=== PATIENT | male | born 1940 | race Caucasian/White ===

== ENCOUNTER → 2016-09-27 | Outpatient (CLI) | payer MEDICARE ==
[~2016-09-27] MED LIST: ASP81TEC PO; HYDR-3061 PO; LISI10TA PO; ROSU10TA12 PO; TADA2.5T PO; VARD20TA30 PO; VIT D
--- NOTE | 2016-09-29 12:50 | ECHOCARDIOGRAPHY REPORT ---
PROCEDURE PHYSICIAN: BECKY SAN DATE OF PROCEDURE: 09/27/2016 TWO DIMENSIONAL ECHOCARDIOGRAM REPORT PRIMARY PHYSICIAN: Dr. Grant OTHER PHYSICIAN: Dr. San REFERRING PHYSICIAN: ORDERING PHYSICIAN: Ora Alfonso APRN INDICATION FOR THE PROCEDURE: Cardiac murmur, aortic valve sclerosis, coronary artery disease. MEASUREMENTS DERIVED VALUES LV DIAMETER (LAX) NORMALS NORMALS Diastolic 4.7 (3.6-5.2) Eject. Fract. (60%+/-6%) Systolic (2.3-3.9) Diastolic Vol. % Shortening (0.22-0.42) Systolic Vol. Aortic Root 3.3 IVS THICKNESS Diastolic 0.8 (0.6-1.1) LVPW THICKNESS Diastolic 1.1 (0.6-1.1) LA DIAMETER Systolic 2.9 (2.1-3.7) DESCRIPTION: This is a technically difficult and not ideal for wall motion analysis. Global left ventricular systolic function appears fairly well preserved. The aortic, mitral and tricuspid valve leaflets show good leaflet excursion. There is mild mitral annular calcification, mild aortic valve sclerosis. There is no significant pericardial effusion. Doppler imaging shows trivial to mild mitral and tricuspid regurgitation. There is a suggestion of distal septal hypokinesis on some views. There is no evidence of any significant valvular stenosis. Pulmonary artery systolic pressure is estimated to be within normal limits. Mitral inflow is suggestive of mild diastolic dysfunction of the left ventricle. CONCLUSION: 1. Well preserved global left ventricular systolic function with an ejection fraction of 50 to 55%. 2. The study is technically difficult and not ideal for wall motion analysis. In some views, distal septal hypokinesis is suggested. 3. Mild aortic valve sclerosis and mild mitral annular calcification without evidence of significant valvular stenosis. 4. Mild diastolic dysfunction of the left ventricle. 5. Mild mitral and tricuspid regurgitation. Job ID: [id number] Dictated Date: 09/29/2016 09:35:49 Bank Analyst Date: 09/29/2016 12:39:40 / cassia
== END ==
LOC: CARD 07:33
PROVIDERS: ATTEND Nurse Practitioner Family
DX: I70.0 Atherosclerosis of aorta (principal); I25.10 Atherosclerotic heart disease of native coronary artery without angina pectoris; I65.23 Occlusion and stenosis of bilateral carotid arteries; E78.4 Other hyperlipidemia; Z72.0 Tobacco use
CPT/HCPCS: 93306

== ENCOUNTER → 2016-11-28 | Outpatient (CLI) | payer MEDICARE ==
--- NOTE | 2016-11-28 13:24 | Diagnostic Imaging Report ---
PROCEDURE: US Thyroid. TECHNIQUE: Multiple real-time grayscale images were obtained of the thyroid in various projections. INDICATION: Follow-up thyroid nodule. COMPARISON: 11/06/2014, 10/30/2012, and 10/20/2011. DISCUSSION: The thyroid gland remains mildly enlarged. The right thyroid measures 5.7 x 2.4 x 2.1 cm. The left thyroid measures 6.0 x 1.6 x 1.9 cm. A 5 mm hypoechoic nodule within the left thyroid gland is stable, likely benign. Solid dominant nodule within the right thyroid gland measures 2 x 2 x 3.2 cm, which measures slightly larger than previous exam. The overall appearance is very similar to the prior exam though centrally, there is a small cystic component which is slightly increased in size. Given the overall long-term stability, nodule is likely benign though recommend yearly sonographic follow-up to document further stability. No new nodule identified. No suspicious microcalcifications. IMPRESSION: Dominant right thyroid nodule is slightly increased in size from previous exam though the overall appearance remains benign. Recommend yearly sonographic follow-up. Dictated by: Dictated on workstation # [id number]
== END ==
LOC: RAD 10:59
PROVIDERS: ATTEND Internal Medicine
DX: E04.9 Nontoxic goiter, unspecified (principal)
CPT/HCPCS: 76536

== ENCOUNTER 2017-11-16 05:50 | Outpatient (CLI) | payer MEDICARE ==
[~2017-11-16] VITALS: Ht 170.2 cm; Wt 92.1 kg
[2017-11-16] MEDS ORDERED: LISI10TA2 PO (15:54)
[2017-11-16] MEDS ORDERED: ASPI-586 PO (15:54)
[2017-11-16] MEDS ORDERED: ATOR40TA70 PO (15:54)
[2017-11-16] MEDS ORDERED: CHOL40003 PO (15:54)
[2017-11-16] MEDS ORDERED: NF-SILD25T PO (15:54)
[2017-11-16] MEDS ORDERED: LISI-556 PO (15:54)
== END 2017-11-16 15:50 ==
LOC: PREOP 05:50
PROVIDERS: ATTEND Surgery
DX: Z01.818 Encounter for other preprocedural examination (principal); Z12.11 Encounter for screening for malignant neoplasm of colon; Z86.010 Personal history of colon polyps

== ENCOUNTER 2017-11-22 10:57 | Day surgery (SDC) | payer MEDICARE ==
[~2017-11-22] VITALS: Ht 170.2 cm; Wt 92.1 kg
[~2017-11-22 10:57] MED LIST changes: +ASPI-586 PO; +ATOR40TA70 PO; +CHOL40003 PO; +LISI-556 PO; +LISI10TA2 PO; +NF-SILD25T PO
[2017-11-22] MEDS ORDERED: NS IV 500 ML 500 ML IV PRN (11:10)
[2017-11-22] MEDS ORDERED: LIDOCAINE JELLY 2% (XYLOCAINE) 5 ML TUBE MM PRN (11:15)
[2017-11-22 11:25] VITALS: BP 117/64
--- NOTE | 2017-11-22 11:33 | Conscious Sedation/ASA ---
Conscious Sedation Pre-Proced Time Reviewed: 11:20 ASA Class: 2 Airway Mallampati Classification: ([facility] [facility] appropriate class) I. II. III, IV Lungs Heart ASA score ASA 1: a normal healthy patient ASA 2: a patient with a mild systemic disease (mid diabetes, controlled hypertension, obesity ASA 3: a patient with a severe systemic disease that limits activity (angina , COPD, prior Myocardial infarction) ASA 4: a patient with an incapacitating disease that is a constant threat to life (CHF, renal failure) ASA 5: a moribund patient not expected to survive 24 hrs. (ruptured aneurysm) ASA 6: a declared brain patient whose organs are being harvested. For emergent operations, add the letter E after the classification Grade 2 Sedation Plan: Analgesia, Amnesia, Plan communicated to team members, Discussed options with patient/fam, Discussed risks with patient/fam Note The patient is an appropriate candidate to undergo the planned procedure, sedation, and anesthesia. The patient immediately re-assessed prior to indication. ANGELIQUE GORDON MD Nov 22, 2017 11:33 am
--- NOTE | 2017-11-22 11:34 | Progress Note-Pre Operative ---
Pre-Operative Progress Note H&P Reviewed The H&P was reviewed, patient examined and no changes noted. Date Seen by Provider: Nov 22, 2017 Time Seen by Provider: 11:20 Date H&P Reviewed: Nov 22, 2017 Time H&P Reviewed: 11:20 Pre-Operative Diagnosis: hx of polyp ANGELIQUE GORDON MD Nov 22, 2017 11:33 am
[2017-11-22] MEDS ORDERED: morphine INJ 10 MG/ML 1ML (SYR OR VIAL) IV PRN (11:45)
[2017-11-22] MEDS ORDERED: HYDROcodone/APAP 5 MG/325 MG (LORTAB) TAB PO PRN (11:45)
[2017-11-22] MEDS ORDERED: ACETAMINOPHEN 325 MG TABLET/CAPLET (TYLENOL) PO PRN (11:45)
[2017-11-22] MEDS ORDERED: ONDANSETRON 4 MG/2 ML (SDV) Z0FRAN IV PRN (11:45)
[2017-11-22] MEDS: MIDAZOLAM 2 MG/2 ML (VERSED) VIAL IVP PRN ×3 (12:12→13:01)
[2017-11-22] MEDS ORDERED: fentaNYL INJECTION 100 MCG/2 ML AMP ONE ×2 (12:53)
[2017-11-22] MEDS ORDERED: MIDAZOLAM 2 MG/2 ML (VERSED) VIAL ONE ×3 (12:53→12:54)
[2017-11-22] MEDS ORDERED: LIDOCAINE JELLY 2% (XYLOCAINE) 5 ML TUBE ONE (12:54)
[2017-11-22] MEDS: fentaNYL INJECTION 100 MCG/2 ML AMP IVP PRN ×4 (12:57→13:18)
--- NOTE | 2017-11-22 13:41 | Progress Note-Post Operative ---
Post-Operative Progess Note Surgeon (s)/Crisis Intervention Specialist (s) Surgeon ANGELIQUE GORDON MD Crisis Intervention Specialist: none Pre-Operative Diagnosis hx of polyp Post-Operative Diagnosis chronic stage 2 ext and int hemorrhoids. Procedure & Operative Findings Date of Procedure 11/22/17 Procedure Performed/Findings Colonoscopy. Anesthesia Type CS Estimated Blood Loss Estimated blood loss (mL): minimal Specimens/Packing Specimens Removed none ANGELIQUE GORDON MD Nov 22, 2017 13:41
--- NOTE | 2017-11-22 13:45 | Discharge Inst-Surgical ---
D/C Lap Instructions-HEIDI Follow Up 5 years Activity as tolerated No driving for 24 hours No driving while on pain medications Incentive Spirometry use every 2 hours while awake High Fiber Diet 25g or more per day Avoid Alcohol, Caffeine, Spicy [place] and Acid foods. Drink 64 fluid oz or more of fluids per day. Symptoms to Report: Fever over 101 degree F, Nausea/Vomiting If any problems/questions: Contact your physician or go to Emergency Room ANGELIQUE GORDON MD Nov 22, 2017 13:45
[2017-11-22 14:00] VITALS: BP 77/56
[2017-11-22 14:20] VITALS: BP 90/60
[2017-11-22 14:25] VITALS: BP 90/60
--- NOTE | 2017-11-22 20:44 | OPERATIVE REPORT ---
DATE OF SERVICE: 11/22/2017 ATTENDING PRIMARY CARE PHYSICIAN: Dr. MAYELIN Grant. PREOPERATIVE DIAGNOSIS: History of colon polyps. 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 PROCEDURE: Colonoscopy. SURGEON: Angelique Gordon MD ANESTHESIA: Conscious sedation. ESTIMATED BLOOD LOSS: Minimal. FINDINGS: Chronic stage II external and internal hemorrhoids. Prostate gland was palpable and appeared normal. The remainder of the rectum and colon were normal. There were no polyps identified or any neoplasms. DISPOSITION: The patient tolerated the procedure well. INDICATIONS: The patient is a 77-year-old male, who we have seen before in the past. His first colonoscopy was in 2002 where a polyp was detected and found to be of an adenomatous polyp. He then underwent and colonoscopy by us 05/2014 where he was found to have 2 hyperplastic polyps near the cecum as well as a sessile polyp near the ileocecal valve. All three of these were found to be adenomatous polyps. At this time, he states that he is doing well and has no complaints. He also does not report any family history of colon cancer. DESCRIPTION OF PROCEDURE: The patient was brought to the endoscopy suite, laid in left lateral decubitus position. After adequate IV pain and sedating medications and conscious sedation anesthesia, a digital rectal examination was performed. Chronic stage II external and internal hemorrhoids were identified. which are not actively edematous nor inflamed and no bleeding. Normal sphincter tone was felt and there were no palpable masses. The endoscope was then intubated to the anus and rectum gently insufflated. The endoscope was then advanced to the valves of Weaver of the rectum with no polyps or any neoplasms identified. The endoscope was then advanced to the sigmoid colon where no significant diverticulosis identified. The endoscope was then advanced to the remainder of the descending, transverse and ascending colon to the cecum. These segments were normal. There were no polyps or any neoplasms identified throughout the colon or rectum. The endoscope was then slowly withdrawn taking a second look and suctioning residual air with no additional findings. The patient tolerated the procedure well. We will recommend continued medical management with a high fiber diet with at least 30 grams of fiber per day as well as at least 64 fluid ounces of water daily to promote soft stools on a daily basis. He was found to have polyps on two different colonoscopies; however, no polyps identified on this one. He also does not report any family history of colon cancer. We feel in that in this scenario he may followup with us in approximately 5 to 7 years and had have a colonoscopy and if there are no polyps with any villous component, he may then wait 10 years. Job ID: [id number] DocumentID: [id number] Dictated Date: 11/22/2017 13:50:04 Third Steel Pourer Date: 11/22/2017 20:43:37 Dictated By: ANGELIQUE GORDON MD
== END 2017-11-22 14:25 | disposition home or self-care (01) ==
LOC: ENDO 10:57
PROVIDERS: ATTEND Surgery
DX: K64.1 Second degree hemorrhoids (principal); Z86.010 Personal history of colon polyps; I10 Essential (primary) hypertension; E78.00 Pure hypercholesterolemia, unspecified; I25.10 Atherosclerotic heart disease of native coronary artery without angina pectoris; Z95.1 Presence of aortocoronary bypass graft; Z79.899 Other long term (current) drug therapy; F17.210 Nicotine dependence, cigarettes, uncomplicated

== ENCOUNTER → 2018-06-15 | Outpatient (CLI) | payer MEDICARE ==
[~2018-06-15] MED LIST changes: +REGADENOSON 0.4 MG/5 ML SYR (LEXISCAN) IV ONE
[2018-06-15] MEDS: CATHETER FLUSH 10 ML SYR IV PRN ×3 (08:06→09:04)
[2018-06-15 09:03] VITALS: BP 120/58
--- NOTE | 2018-06-16 00:44 | STRESS TEST ---
DATE OF SERVICE: 06/15/2018 RESTING AND POST REGADENOSON TECHNETIUM-99M TETROFOSMIN SPECT CT IMAGING ORDERING PHYSICIAN: Ora Alfnoso APRN PRIMARY PHYSICIAN: Dr. Grant. CLINICAL DIAGNOSES: Coronary artery disease. Baseline images were carried out after injection of 10.18 mCi of technetium-99m Tetrofosmin. This is followed by 0.4 mg regadenoson and 29.1 mCi technetium-99m Tetrofosmin for stress imaging. The electrocardiogram showed sinus rhythm at baseline. The electrocardiogram did not change significantly with regadenoson infusion. The patient reported some headache after regadenoson infusion, which resolved in a few minutes. He also noted some shortness of breath following regadenoson infusion, which resolved in a few minutes. Review of images at rest and following stress indicates a predominantly fixed basal inferior perfusion defect. Gated images show basal inferior hypokinesis. Left ventricular ejection fraction is calculated to be 42%. Left ventricular end diastolic volume is 70 mL. TID is absent (1.09). CONCLUSIONS: 1. 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 2. Basal inferior hypokinesis. 3. Left ventricular ejection fraction is calculated to be 42%. Job ID: [id number] DocumentID: [id number] Dictated Date: 06/15/2018 20:54:58 Television Anchor Date: 06/16/2018 00:44:10 Dictated By: BECKY TRINH MD, MA, FACP, FACC,
== END ==
LOC: CARD 07:50
PROVIDERS: ATTEND Nurse Practitioner Family
DX: I25.10 Atherosclerotic heart disease of native coronary artery without angina pectoris (principal); I77.89 Other specified disorders of arteries and arterioles; E78.5 Hyperlipidemia, unspecified; Z72.0 Tobacco use
CPT/HCPCS: 78452; 93017

== ENCOUNTER → 2019-01-16 | Outpatient (CLI) | payer MEDICARE ==
[~2019-01-16] MED LIST changes: -REGADENOSON 0.4 MG/5 ML SYR (LEXISCAN) IV ONE
--- NOTE | 2019-01-16 16:03 | Diagnostic Imaging Report ---
INDICATION: Shortness of breath with history of tobacco use. TECHNIQUE: Two view chest 3:52 PM. CORRELATION STUDY: 10/02/2013 FINDINGS: Poststernotomy changes. Heart size, mediastinum and vasculature overall generally stable. Lung chavira are somewhat hyperinflated but overall clear. No infiltrate or effusion. There is diffuse thin bridging osteophytes thoracic spine, can be seen with underlying ankylosing spondylitis. IMPRESSION: 1. Stable chest demonstrates no acute abnormality. Poststernotomy changes. Hyperinflated lung chavira. Dictated by: Dictated on workstation # [id number]
== END ==
LOC: RAD 15:43
PROVIDERS: ATTEND Internal Medicine
DX: R06.02 Shortness of breath (principal); Z72.0 Tobacco use; Z98.890 Other specified postprocedural states
CPT/HCPCS: 71046

== ENCOUNTER → 2019-02-06 | Outpatient (CLI) | payer MEDICARE ==
[~2019-02-06] MED LIST changes: +RT-ALBUTEROL SULF 2.5 MG/3 ML PRE-MIX VIAL INH ONE
== END ==
LOC: RT 14:51
PROVIDERS: ATTEND Physician Assistant
DX: R06.02 Shortness of breath (principal); Z87.891 Personal history of nicotine dependence
CPT/HCPCS: 94010; 94060; 94726; 94729

== ENCOUNTER → 2019-09-09 | Outpatient (CLI) | payer MEDICARE ==
[~2019-09-09] MED LIST changes: -RT-ALBUTEROL SULF 2.5 MG/3 ML PRE-MIX VIAL INH ONE
--- NOTE | 2019-09-09 10:55 | Diagnostic Imaging Report ---
PROCEDURE: US Thyroid. TECHNIQUE: Multiple real-time grayscale images were obtained of the thyroid in various projections. INDICATION: Thyroid nodules, follow-up. COMPARISON: Correlation is made with prior thyroid ultrasound from 11/28/2016. FINDINGS: Right lobe of the thyroid measures 5.9 x 2.6 x 2.7 cm, and the left lobe measures 4.7 x 2.0 x 1.7 cm. The isthmus is 5 mm in thickness. A dominant solid nodule in the inferior right lobe of the thyroid measures 3.2 x 2.3 x 2.3 cm compared with 3.2 x 2.0 x 2.0 cm. Probable colloid cyst in the upper pole of the left lobe measures 6 mm x 5 mm x 4 mm compared with approximately 5 mm x 5 mm on prior. No new mass is detected. IMPRESSION: Overall stable thyroid ultrasound when compared with examination from 11/28/2016. Dictated by: Dictated on workstation # [id number]
== END ==
LOC: RAD 09:32
PROVIDERS: ATTEND Physician Assistant
DX: E04.2 Nontoxic multinodular goiter (principal)
CPT/HCPCS: 76536

== ENCOUNTER 2019-10-10 12:45 | Outpatient (CLI) | payer MEDICARE | END 2019-10-10 13:40 | disposition home or self-care (01) | LOC: SLEEP 12:45 | PROVIDERS: ATTEND Nurse Practitioner | DX: G47.33 Obstructive sleep apnea (adult) (pediatric) (principal) ==

== ENCOUNTER → 2020-02-05 | Outpatient (CLI) | payer MEDICARE ==
[~2020-02-05] MED LIST changes: +RT-ALBUTEROL SULF 2.5 MG/3 ML PRE-MIX VIAL INH ONE
[2020-02-05 10:11] LABS: CREATININE SERUM 1.59 MG/DL (0.60-1.30)
--- NOTE | 2020-02-05 10:46 | Diagnostic Imaging Report ---
PROCEDURE: CT chest without contrast. TECHNIQUE: Multiple contiguous axial images were obtained through the chest without the use of intravenous contrast. Auto Exposure Controls were utilized during the CT exam to meet ALARA standards for radiation dose reduction. INDICATION: COPD, dyspnea. COMPARISON: Radiograph of the chest dated January 16, 2019 and thyroid ultrasound dated September 09, 2019. FINDINGS: 2.5 cm hypodense nodule is identified within the posterior aspect of the right thyroid lobe. This is felt to correspond to the dominant nodule noted on prior ultrasounds. 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 No significant adenopathy within the chest. Scattered vascular calcifications without aneurysmal dilatation of the thoracic aorta. The heart is within normal limits in size. No pericardial effusion. Tiny hiatal hernia. No pleural effusion. No pneumothorax. Minimal scarring and/or atelectasis within the lingula and right middle lobe. The lungs are slightly hyperexpanded. The lungs are otherwise clear of focal pulmonary opacity. The trachea is patent. Minimal cholelithiasis. Vascular calcifications within the upper abdomen. Upper abdomen is otherwise unremarkable. Thin anterior syndesmophytes are noted throughout the thoracic spine. Scattered osseous degenerative changes without acute osseous abnormality. IMPRESSION: Mild pulmonary hyperinflation, felt related to mild background chronic obstructive pulmonary disease. Thin anterior syndesmophytes which can be seen with ankylosing spondylitis. Recommend clinical correlation. Thyroid nodules, including 2.5 cm right thyroid nodule. These have been previously evaluated on the prior ultrasound on September 09, 2019. Please see that report for further details. Minimal cholelithiasis. Dictated by: Dictated on workstation # [id number]
--- NOTE | 2020-02-05 11:14 | NUR ---
PT DID PERFORM PFT; HE DID WELL THROUGH FIRST TWO TEST; THE THIRD TEST, HE COULD NOT PERFORM REQUIRED FOR ACCURATE RESULTS. TESTED NOTED FOR ORDERING PHYSICIAN, AND FAXED OVER TO OFFICE FOR REVIEW.
[2020-02-05 11:50] LABS: ABG OXYGEN SATURATION 96 % (94-100); ABG PCO2 37 MMHG (35-45); ABG PO2 80 MMHG (79-93); ABG TCO2 23.4 MMOL/L (21.0-31.0)
[2020-02-05 12:00] LABS: ALLENS TEST POSITIVE; PATIENT TEMP 36.5; VENTILATOR NO
== END ==
LOC: RT 09:24
PROVIDERS: ATTEND Nurse Practitioner Family
DX: J44.9 Chronic obstructive pulmonary disease, unspecified (principal); G47.10 Hypersomnia, unspecified; E04.2 Nontoxic multinodular goiter; J98.4 Other disorders of lung
CPT/HCPCS: 36415; 71250; 82565; 82805; 84520; 94060; 94729

== ENCOUNTER → 2020-05-26 | Outpatient (CLI) | payer MEDICARE ==
[~2020-05-26] VITALS: Ht 170 cm; Wt 94.0 kg
[~2020-05-26] MED LIST changes: +CATHETER FLUSH 10 ML SYR IV PRN; +REGADENOSON 0.4 MG/5 ML SYR (LEXISCAN) IV ONE; -RT-ALBUTEROL SULF 2.5 MG/3 ML PRE-MIX VIAL INH ONE
[2020-05-26 08:49] VITALS: BP 152/76
--- NOTE | 2020-05-26 19:41 | STRESS TEST ---
DATE OF SERVICE: 05/26/2020 RESTING AND POST REGADENOSON TECHNETIUM-99M TETROFOSMIN SPECT CT IMAGING Baseline images were carried out after injection of 10.91 mCi of technetium-99m Tetrofosmin. This was followed by 0.4 mg regadenoson and 31.3 mCi of technetium-99m Tetrofosmin for stress imaging. The electrocardiogram showed sinus rhythm at baseline. It did not change significantly with regadenoson infusion. The patient noted mild shortness of breath following regadenoson infusion, which resolved in a few minutes. Review of images at rest and following stress does not indicate any significant perfusion defects consistent with significant myocardial ischemia or infarction. Gated images show normal global left ventricular systolic function with normal regional wall motion. Left ventricular ejection fraction is calculated to be 57%. Left ventricular end diastolic volume is 49 mL. TID is absent (1.03). CONCLUSIONS: 1. No evidence of any significant myocardial ischemia or infarction on this study. 2. Normal regional wall motion. 3. Normal global left ventricular systolic function with a calculated ejection fraction of 57%. Job ID: [id number] DocumentID: [id number] Dictated Date: 05/26/2020 16:00:36 Rabbit Breeder Date: 05/26/2020 19:41:00 Dictated By: BECKY TRINH MD, MA, FACP, FACC,
== END ==
LOC: CARD 07:45
PROVIDERS: ATTEND Nurse Practitioner Family
DX: I25.10 Atherosclerotic heart disease of native coronary artery without angina pectoris (principal); I65.29 Occlusion and stenosis of unspecified carotid artery; E78.5 Hyperlipidemia, unspecified; I70.0 Atherosclerosis of aorta
CPT/HCPCS: 78452; 93017; A9502

== ENCOUNTER → 2022-07-25 | Outpatient (CLI) | payer MEDICARE ==
[~2022-07-25] MED LIST changes: -CATHETER FLUSH 10 ML SYR IV PRN; -LISI-556 PO; -LISI10TA2 PO; +LISI10TA25 PO; +LISI5TAB20 PO; -REGADENOSON 0.4 MG/5 ML SYR (LEXISCAN) IV ONE
== END ==
LOC: CARD 09:00
PROVIDERS: ATTEND Nurse Practitioner Family
DX: I35.8 Other nonrheumatic aortic valve disorders (principal); I25.10 Atherosclerotic heart disease of native coronary artery without angina pectoris
CPT/HCPCS: 93306

== ENCOUNTER → 2022-07-29 | Outpatient (CLI) | payer MEDICARE ==
[~2022-07-29] MED LIST changes: +CATHETER FLUSH 10 ML SYR IVP PRN; +REGADENOSON 0.4 MG/5 ML SYR (LEXISCAN) IV ONE
[2022-07-29 09:39] VITALS: BP 162/108
--- NOTE | 2022-08-02 13:08 | STRESS TEST ---
DATE OF SERVICE: 07/29/2022 RESTING AND POST REGADENOSON TECHNETIUM-99M TETROFOSMIN SPECT CT IMAGING ORDERING PHYSICIAN: Ora Alfonso APRN PRIMARY PHYSICIAN: Dr. Grant. CLINICAL DIAGNOSIS: Coronary artery disease. Baseline images were carried out after injection of 8.61 mCi of technetium-99m tetrofosmin. This was followed by 0.4 mg of regadenoson and 25.2 mCi of technetium-99m tetrofosmin for stress imaging. The electrocardiogram showed sinus rhythm at baseline. It did not change significantly with regadenoson infusion. J-point elevation is seen in the inferolateral leads. This remained unchanged. Review of images at rest and following stress does not indicate any significant perfusion defects consistent with myocardial ischemia or infarction. Gated images show normal global left ventricular systolic function with normal regional wall motion. Left ventricular ejection fraction is calculated to be 56%. CONCLUSIONS: 1. No evidence of any significant myocardial ischemia or infarction on the study. 2. Normal regional wall motion. 3. Normal global left ventricular systolic function with a calculated ejection fraction of 56%. Job ID: [id number] DocumentID: [id number] Dictated Date: 08/02/2022 12:30:16 Nuclear Instructor Date: 08/02/2022 13:06:00 Dictated By: BECKY TRINH MD; DARIEN; FACP; FACC;
== END ==
LOC: CARD 07:44
PROVIDERS: ATTEND Nurse Practitioner Family
DX: I25.10 Atherosclerotic heart disease of native coronary artery without angina pectoris (principal)
CPT/HCPCS: 78452; 93017; A9502